=== PATIENT | male | born 1980 | race Caucasian/White ===

== ENCOUNTER 2018-09-24 01:35 | Emergency (ER) | payer OTHER ==
[~2018-09-24] VITALS: Ht 167.6 cm; Wt 73.5 kg
[2018-09-24 01:40] VITALS: BP 129/93
--- NOTE | 2018-09-24 02:08 | NUR ---
PATIENT PRESENTS TO ED WITH cough x 1 week, DENIES N/V/D; SKIN IS PINK/WARM/DRY; AAOX4 WITH EVEN AND STEADY GAIT; LUNGS CLEAR BL; HR EVEN AND REGULAR; PT DENIES ANY FEVER, CP, SOB, AT THIS TIME; PATIENT STATES PAIN OF 0/10 AT THIS TIME; VSS; PATIENT POSITIONED FOR COMFORT; HOB ELEVATED; BEDRAILS UP X2; BED DOWN. ER MD MADE AWARE OF PT STATUS.
[2018-09-24] MEDS ORDERED: ALBUTEROL SULFATE/IPRATROPIU 3 ML SOL IH ONE ×2 (02:15→02:35)
[2018-09-24] MEDS ORDERED: predniSONE 20 MG TAB PO ONE (02:25)
[2018-09-24 02:33] VITALS: BP 129/93
--- NOTE | 2018-09-24 02:33 | NUR ---
Patient discharged with v/s stable. Written and verbal after care instructions given and explained. Patient alert, oriented and verbalized understanding of instructions. Ambulatory with steady gait. All questions addressed prior to discharge. ID band removed. Patient advised to follow up with PMD. Rx of ALBUTEROL, PREDNISONE, AZYTHROMYCIN GIVEN. given. Patient educated on indication of medication including possible reaction and side effects. Opportunity to ask questions provided and answered.
== END 2018-09-24 02:33 | disposition home or self-care (01) ==
LOC: MED 01:35 → EEVIPCON 01:35 → MED 02:33
DX: J20.9 Acute bronchitis, unspecified (principal); M79.10 Myalgia, unspecified site; F17.210 Nicotine dependence, cigarettes, uncomplicated
CPT/HCPCS: 99283; J7512; J7620

== ENCOUNTER 2018-11-01 19:49 | Emergency (ER) | payer OTHER ==
[~2018-11-01] VITALS: Ht 167.6 cm; Wt 73.9 kg
[2018-11-01 19:49] VITALS: BP 133/87
--- NOTE | 2018-11-01 19:49 | NUR ---
PATIENT AMBULATED TO ER BED 5.
--- NOTE | 2018-11-01 19:55 | NUR ---
PATIENT IS A 38 MALE WHO PRESENTS TO THE ED C/O MED REFILL. PT STATES THAT HE RAN OUT OF HIS PRESCRIPTION OF CHANTIX. PT DENIES PAIN AT THIS TIME. PT DENIES CP, SOB, N/V/D. PT AWAKE AND ALERT, RR EVEN/UNLABORED/LUNG SOUNDS CLEAR BL. PT REPOSITIONED FOR COMFORT, BED IN LOWEST POSITION. ER MD DR. CONRAD NOTIFIED. WILL CONTINUE TO MONITOR.
[2018-11-01 20:40] VITALS: BP 128/84
--- NOTE | 2018-11-01 20:40 | NUR ---
Patient discharged with v/s stable. Written and verbal after care instructions given and explained. Patient alert, oriented and verbalized understanding of instructions. Ambulatory with steady gait. All questions addressed prior to discharge. ID band removed. Patient advised to follow up with PMD. Rx of CHANTIX STARTING MONTH BOX AND CHANTIX CONTINUING MONTH BOX given. Patient educated on indication of medication including possible reaction and side effects. Opportunity to ask questions provided and answered.
== END 2018-11-01 20:40 | disposition home or self-care (01) ==
LOC: MED 19:49
DX: Z71.6 Tobacco abuse counseling (principal); Z76.0 Encounter for issue of repeat prescription
CPT/HCPCS: 99283

== ENCOUNTER 2019-11-10 05:26 | Emergency (ER) | payer OTHER ==
[~2019-11-10] VITALS: Ht 167.6 cm; Wt 79.4 kg
[2019-11-10 05:28] VITALS: BP 132/76
[2019-11-10 05:40] VITALS: BP 132/76
== END 2019-11-10 05:40 | disposition home or self-care (01) ==
LOC: MED 05:26
DX: Z76.0 Encounter for issue of repeat prescription (principal); Z71.6 Tobacco abuse counseling
CPT/HCPCS: 99281